=== PATIENT | female | born 1970 | race Caucasian/White ===

== ENCOUNTER 2022-11-01 12:42 | Outpatient (OUT) | payer OTHER, SELFPAY ==
[2022-11-01 12:58] LABS: Hemoglobin 14.5 g/dL (12.0-16.0)
[2022-11-01] MEDS: ALBUTEROL SULFATE 2.5 MG/3 ML VIAL NEB IH ×2 (13:45→14:46)
--- NOTE | 2022-11-01 14:42 | RT_ITS ---
The [facility] Test Date: 2022-11-01 Pat Name: JULY M[place]VILLE Department: Room: - Gender: Female [employer] Supervisor: Hamlet Patel RRT : 1970 Requested By: [id number] Order Number: [id number] Reading MD: Jose Hunter Interpretive Statements Pulmonary function testing was completed according to ATS criteria. Findings were considered accurate and reproducible. Both pre- and post-bronchodilator values utilized for spirometry. No prior studies available for comparison. Spirometry (based on pre-bronchodilator values): -FEV1/FVC: Low normal @ 70% -FEV1: Moderately reduced @ 72% -FVC: Low normal @ 81% -UQP96-75%: Reduced @ 50% -There is a partial bronchodilator response in FVC which meets >200mL increase but <12% change. Lung volumes by plethysmography: -RV: Increased @ 178% -TLC: Increased @ 127% Diffusion capacity: -DLCO: Mild reduction @ 71% when corrected for Hb 14.5g/dL Flow-volume loop: -Mild-moderate obstructive pattern Impressions: -Trend towards moderate obstruction with partial bronchodilator response. Elevated RV and TLC suggest air trapping and hyperinflation respectively. Mild diffusion impairment. Study appears compatible with COPD/emphysema. Clinical correlation required. Electronically Signed On 11-01-2022 16:39:22 EDT by Jose Hunter
== END 2022-11-01 12:43 | disposition home or self-care (01) ==
PROVIDERS: PCP Nurse Practitioner Family; Visit Provider Nurse Practitioner Family
DX: F17.200 Nicotine dependence, unspecified, uncomplicated (principal); R94.2 Abnormal results of pulmonary function studies
CPT/HCPCS: 36415; 85018; 94060; 94726; 94729; 99407

== ENCOUNTER 2022-11-02 12:44 | Outpatient (OUT) | payer OTHER, SELFPAY ==
--- NOTE | 2022-11-02 12:47 | CT_ITS ---
[address] [address] Patient Name: JULY MANCINI MRN: [id number] date: 1970 Sex: F Assigned Patient Location: CT Current Patient Location: CT Accession/Order Number: [id number] Exam Date: 11/02/2022 13:00 Report Date: 11/02/2022 13:34 At the request of: LIDA GIRALDO Procedure: CT chest w con EXAM: CT chest w con HISTORY: Lung Nodules R91.8 COMPARISON: 05/21/2022 TECHNIQUE: Axial CT images were obtained of the chest with intravenous contrast. Multiplanar reconstructions were performed. CHEST FINDINGS: Lungs/Pleura: The lungs are clear. A calcified nodules present in the upper portion of the left lower lobe measuring 1.2 cm, likely due to remote granulomatous disease. No pleural effusion or pneumothorax. Cardiovascular: The heart is normal in size. No significant coronary artery calcification identified. The aorta and pulmonary arteries are unremarkable. Pericardium: No effusion. Mediastinum: Unremarkable. Lymph Nodes: No lymph node enlargement by CT size criteria. Bones: No acute osseous abnormality. Soft tissues: Unremarkable. Upper Abdomen: Unremarkable. CT/CT chest w con IMPRESSION: 1. No acute abnormality of the chest. 2. Calcified granuloma in the left lower lobe measuring 1.2 cm. Electronically authenticated by: DELANEY GAITAN Date: 11/02/2022 13:34
== END 2022-11-02 12:45 | disposition home or self-care (01) ==
LOC: CT 12:44
PROVIDERS: PCP Nurse Practitioner Family; Visit Provider Nurse Practitioner Family
DX: R91.8 Other nonspecific abnormal finding of lung field (principal)
CPT/HCPCS: 71260; Q9967

== ENCOUNTER 2025-02-02 14:22 | Outpatient (OUT) | payer OTHER, SELFPAY ==
--- NOTE | 2025-02-02 14:28 | XR_ITS ---
The [address] [address] Patient Name: July MRN: [id number] date: 1970 Sex: F Assigned Patient Location: [facility] Current Patient Location: [facility] Accession/Order Number: [id number] Exam Date: 02/02/2025 14:30 Report Date: 02/02/2025 17:56 At the request of: LIDA GIRALDO Procedure: XR chest 2V PA AND LATERAL CHEST: CLINICAL HISTORY: Cough, COPD COMPARISON: 11/02/2022 FINDINGS: Unremarkable cardiomediastinal. Lungs clear. No effusion or pneumothorax. Left midlung calcific granuloma. XR/XR chest 2V IMPRESSION: NO ACUTE CARDIOPULMONARY ABNORMALITY. Impression dictated by: Matias Brenner M.D. 02/02/2025 5:56 PM Dictation Location: [place] [address] Electronically authenticated by: [id number] Y Date: 02/02/2025 17:56
--- OUTSIDE RECORDS SUMMARY | 2025-02-02 14:28 | XMS_ITS | Clinical Summary ---
Author Organization [facility] Address [address] [facility] [place] [address] Care Team Providers Care Silk Soaker Name Role Phone Ava Diop MD Unavailable [phone] Allergies Active AllergyReactionsCriticalityNoted DateCommentsCodeineRash,UnknownLow 02/06/2023enicillin EQidxSfv73/01/2023 Medications MedicationSigDispense QuantityRefillsLast FilledStart DateEnd DateStatus albuterol (2.5 MG/3ML) 0.083% nebulizer solution 05/13/2022ctive Breztri Aerosphere 160-9-4.8 MCG/ACT aerosol 01/16/2023ctive Nvoqmydfaeg-Ixakiuxbj-Gjynva (Trelegy Ellipta) 100-62.5-25 MCG/ACT aerosol powder 1 puff 1 (one) time each day at the same time.Active pramipexole (Mirapex) 1 MG tablet 1 tablet Orally at Bedtime for 30 daysActive pregabalin (Lyrica) 50 MG capsule 1 capsule every 12 (twelve) hours.Active Social History Tobacco UseTypesPacks/DayYears UsedDateSmoking Tobacco: Every DayCigarettes Smokeless Tobacco: Former Tobacco Cessation:Ready to Q uit: Not Asked; Counseling Given: Not Answered Alcohol UseStandard Drinks/WeekCommentsNot Currently0 (1 standard drink = 0.6 oz pure alcohol)CommentsUnknownSex and Gender InformationValueDate Recorded Sex Assigned at BirthNot on fileLegal CgjAzuxkj50/15/2023 11:51 PM EDTGender IdentityNot on fileSexual OrientationNot on file Last Filed Vital Signs Vital SignReadingTime TakenCommentsBlood Ttneoqss869/80104/08/2022 12:01 PM EDT Bjigt2688/04/2022 12:01 PM KBLQtbbbakqrel34.7 ??C (98 ??F)02/06/2023 12:01 PM EDTRespiratory Rate--Oxygen Apnchwfsie20%02/06/2023 12:01 PM EDTInhaled Oxygen Concentration--Nrkvse48.9 kg (196 lb)02/06/2023 12:01 PM NZDBcvfvq726.5 cm (5' 2 )05/08/2022 12:00 PM ESTBody Mass Index35.85005/08/2022 12:00 PM EST Plan of Treatment Not on file Care Teams Team MemberRelationshipSpecialtyStart DateEnd Date Ava Diop MD [address] [place] [address] [phone] Referring PhysicianFamily Medicine09/30/23
== END 2025-02-02 14:23 | disposition home or self-care (01) ==
LOC: RAD 14:24
PROVIDERS: PCP Nurse Practitioner Family; Visit Provider Nurse Practitioner Family
DX: J44.1 Chronic obstructive pulmonary disease with (acute) exacerbation (principal); R05.9 Cough, unspecified
CPT/HCPCS: 71046